=== PATIENT | female | born 1980 | race Caucasian/White ===

== ENCOUNTER 2017-03-09 12:28 | Emergency (ER) | payer MEDICAID ==
[~2017-03-09] VITALS: Wt 68.0 kg
[2017-03-09] MEDS ORDERED: ONDANSETRON 4 MG INJ IV STA (13:39)
[2017-03-09] MEDS ORDERED: KETOROLAC 30 MG INJ IV STA (13:39)
[2017-03-09 13:58] LABS: ADD SCAN DIFF NO
[2017-03-09 14:00] LABS: ABNORMAL IP MESSAGE 1; BASOPHIL # 0.1 10^3/ul (0.0-0.1); BASOPHILS % 0.6 % (0.0-2.0); EOSINOPHILS # 0.1 10^3/ul (0.0-0.5); EOSINOPHILS % 1.1 % (0.0-7.0); HEMATOCRIT 39.2 % (37.0-47.0); HEMOGLOBIN 12.6 g/dl (12.0-16.0); LYMPHOCYTES # 1.8 10^3/ul (0.8-2.9); MEAN CORPUSCULAR HEMOGLOBIN 28.5 pg (29.0-33.0); MEAN CORPUSCULAR HGB CONC 32.1 g/dl (32.0-37.0); MEAN CORPUSCULAR VOLUME 88.7 fl (82.0-101.0); MEAN PLATELET VOLUME 9.7 fl (7.4-10.4); MONOCYTE # 1.6 10^3/ul (0.3-0.9); NEUTROPHIL # 7.1 10^3/ul (1.6-7.5); PLATELET COUNT 272 10^3/UL (140-415); RED BLOOD COUNT 4.42 10^6/ul (4.20-5.40); RED CELL DISTRIBUTION WIDTH 13.2 % (11.5-14.5); WHITE BLOOD COUNT 10.8 10^3/ul (4.8-10.8)
[2017-03-09 14:05] LABS: ADD UMIC YES; URINE BILIRUBIN (Dip) NEGATIVE (NEGATIVE); URINE BLOOD (Dip) 2+ (NEGATIVE); URINE COLOR LT. YELLOW (YELLOW); URINE KETONES (Dip) NEGATIVE (NEGATIVE); URINE LEUKOCYTE ESTERASE (Dip) 3+ (NEGATIVE); URINE NITRITE (Dip) NEGATIVE (NEGATIVE); URINE TOTAL PROTEIN (Dip) TRACE (NEGATIVE); URINE UROBILINOGEN (Dip) 0.2 E.U./dL (0.1-1.0)
[2017-03-09 14:21] LABS: BACTERIA,URINE FEW
[2017-03-09 14:23] LABS: ALBUMIN/GLOBULIN RATIO 1.08; BILIRUBIN,INDIRECT 0.4 mg/dl (0-1.1); BILIRUBIN,TOTAL 0.4 mg/dl (0.2-1.3); CALCIUM 9.5 mg/dl (8.4-10.2); CREATININE 0.67 mg/dl (0.44-1.00); POTASSIUM 4.3 mmol/L (3.5-5.1); TOTAL PROTEIN 9.6 g/dl (6.1-8.1)
--- NOTE | 2017-03-09 14:26 | RADRPT ---
PROCEDURE: Right Upper Quadrant Ultrasound. CLINICAL INDICATION: Abdominal Pain, not ready @ 1455 TECHNIQUE: Multiple real-time images were acquired of the patient's right upper quadrant abdomen a nd retroperitoneum utilizing a high resolution transducer. COMPARISON: None FINDINGS: The liver measures 16.3 cm, and demonstrates normal echogenicity. The main portal vein is patent wit h proper directional flow. There is no intrahepatic biliary ductal dilatation. The extrahepatic comm on bile duct measures 3 mm. The gallbladder is without stones, wall thickening, or pericholecystic fluid. The visualized pancreas is unremarkable. The right kidney measures 10.2 x 4.9 x 4.5 cm and demonstrates normal echotexture. There is a shadowing 1.9 cm calculus in the mid to lower pole of the right kidney as well as an tj cent shadowing 12 mm calculus in the midpole. There is mild right hydronephrosis. The visualized abdominal aorta and IVC are grossly unremarkable. IMPRESSION: Multiple shadowing right renal calculi measuring up to 1.9 cm with mild right hydronephrosis. Mild hepatomegaly. No cholelithiasis or acute cholecystitis. Normal CBD. RPTAT: EE Physician Bertha Date Time Electronically viewed and signed by Physician Bertha on 03/09/2017 14:25 /
[2017-03-09] MEDS ORDERED: CEFTRIAXONE 1 GM/50 ML (PMX) 50 ML IVPB ONE (14:30)
[2017-03-09] MEDS ORDERED: CIPR500T4 PO (14:55)
[2017-03-09] MEDS ORDERED: TRAM50TA2 PO (14:55)
[2017-03-09] MEDS ORDERED: IBUP-1542 PO (14:55)
[2017-03-09] MEDS ORDERED: CIPROFLOXACIN 400MG/D5W 200 ML IVPB ONE (15:00)
[2017-03-09] MEDS ORDERED: DIPHENHYDRAMINE 50 MG INJ IV ONE (15:00)
--- NOTE | 2017-03-09 15:02 | ERD ---
ER Documentation Chief Complaint Date/Time DATE: 03/09/17 TIME: 15:00 Chief Complaint low back pain radiating to lower abd pain for 2 days. no hematuria HPI This 36-year-old female complains of epigastric pain or right upper quadrant right flank pain for last 2 days. She denies any hematuria or urinary complaints. She denies any fevers. She has nausea but no vomiting. She denies any lower abdominal pain. ROS All systems reviewed and are negative except as per history of present illness. Medications Home Meds Active Scripts Tramadol HCl (Tramadol HCl) 50 Mg Tablet, 50 MG PO Q4 Y for PAIN, #15 TAB Prov:JOHN CHILD MD 03/09/17 Ibuprofen* (Motrin*) 600 Mg Tab, 600 MG PO Q6, #15 TAB Prov:JOHN CHILD MD 03/09/17 Ciprofloxacin Hcl* (Ciprofloxacin Hcl*) 500 Mg Tablet, 500 MG PO BID for 7 Days , TAB Prov:JOHN CHILD MD 03/09/17 Allergies Allergies: Coded Allergies: ceftriaxone (Verified Allergy, Mild, 03/09/17) PMhx/Soc Medical and Surgical Hx: pt denies Medical Hx, pt denies Surgical Hx Hx Alcohol Use: No Hx Substance Use: No Hx Tobacco Use: No Physical Exam Vitals Vital Signs Date Time Temp Pulse Resp B/P Pulse Ox O2 Delivery O2 Flow Rate FiO2 03/09/17 12:55 100.0 94 20 120/60 96 Physical Exam Const: [] Alert, [id number]. Head: Atraumatic Eyes: Normal Conjunctiva ENT: Normal External Ears, Nose and Mouth. Neck: Full range of motion..~ No meningismus. Resp: Clear to auscultation bilaterally Cardio: Regular rate and rhythm, no murmurs Abd: Soft, mild tenderness in the right upper lateral abdomen and right upper quadrant. No rebound. No change at McBurney's point, non distended. Normal bowel sounds Skin: No petechiae or rashes Back: No midline or flank tenderness Ext: No cyanosis, or edema Neur: Awake and alert Psych: Normal Mood and Affect Result Diagram: 03/09/17 1345 03/09/17 1345 Results 24 hrs Laboratory Tests Test 03/09/17 13:25 03/09/17 13:45 Urine Color LT. YELLOW Urine Clarity CLEAR Urine pH 8.0 Urine Specific [place] 1.015 Urine Ketones NEGATIVE Urine Nitrite NEGATIVE Urine Bilirubin NEGATIVE Urine Urobilinogen 0.2 E.U./dL Urine Leukocyte Esterase 3+ Urine Microscopic RBC 2-5/HPF Urine Microscopic WBC >50/HPF Urine Epithelial Cells FEW Urine Bacteria FEW Urine Hemoglobin 2+ Urine Glucose 0.1%% Urine Total Protein TRACE White Blood Count 10.810^3/ul Red Blood Count 4.4210^6/ul Hemoglobin 12.6g/dl Hematocrit 39.2% Mean Corpuscular Volume 88.7fl Mean Corpuscular Hemoglobin 28.5pg Mean Corpuscular Hemoglobin Concent 32.1g/dl Red Cell Distribution Width 13.2% Platelet Count 68578^3/UL Mean Platelet Volume 9.7fl Neutrophils % 66.0% Lymphocytes % 17.0% Monocytes % 15.0% Eosinophils % 1.1% Basophils % 0.6% Nucleated Red Blood Cells % 0.0/100WBC Neutrophils # 7.110^3/ul Lymphocytes # 1.810^3/ul Monocytes # 1.610^3/ul Eosinophils # 0.110^3/ul Basophils # 0.110^3/ul Nucleated Red Blood Cells # 0.010^3/ul Sodium Level 141mmol/L Potassium Level 4.3mmol/L Chloride Level 103mmol/L Carbon Dioxide Level 28mmol/L Anion Gap 14 Blood Urea Nitrogen 12mg/dl Creatinine 0.67mg/dl Glucose Level 84mg/dl Calcium Level 9.5mg/dl Total Bilirubin 0.4mg/dl Direct Bilirubin 0.00mg/dl Indirect Bilirubin 0.4mg/dl Aspartate Amino Transf (AST/SGOT) 23IU/L Alanine Aminotransferase (ALT/SGPT) 33IU/L Alkaline Phosphatase 75IU/L Total Protein 9.6g/dl Albumin 5.0g/dl Globulin 4.60g/dl Albumin/Globulin Ratio 1.08 Lipase 32U/L Current Medications Medications (Trade) Dose Ordered Sig/Vandana Route PRN Reason Start Time Stop Time Status Last Admin Dose Admin Ondansetron HCl (Zofran Inj) 4 mg ONCE STAT IV 03/09/17 13:39 03/09/17 13:41 DC 03/09/17 13:54 Ketorolac Tromethamine 30 mg 30 mg ONCE STAT IV 03/09/17 13:39 03/09/17 13:41 DC 03/09/17 13:54 Ceftriaxone Sodium (Rocephin) 50 ml @ 100 mls/hr ONCE ONCE IVPB 03/09/17 14:30 03/09/17 14:59 DC 03/09/17 14:39 Diphenhydramine HCl 25 mg 25 mg ONCE ONCE IV 03/09/17 15:00 03/09/17 15:01 DC 03/09/17 15:01 Ciprofloxacin/ Dextrose (Cipro Ivpb) 200 ml @ 200 mls/hr ONCE ONCE IVPB 03/09/17 15:00 03/09/17 15:59 Dexamethasone (Decadron) 10 mg ONCE ONCE IV 03/09/17 15:30 03/09/17 15:31 DC 03/09/17 15:13 Procedures/MDM Urine shows bacteria, leukocytes with few epithelial cells. Urine was sent for culture. CBC and CMP are normal lipase are normal. Right upper quadrant ultrasound shows normal gallbladder and liver. There is incidental stones with mild hydronephrosis in the right kidney. Patient was given Toradol 30 mg IV. Patient had complete resolution of pain after observation treatment. Patient was given Rocephin 1 g IV but developed hives in the affected extremity and the Rocephin was stopped and given Benadryl 25 mg IV as well as Decadron 10 mg IV. Patient improved after observation treatment without signs to suggest anaphylaxis, respiratory distress Patient presents with epigastric and right leg pain which is resolved with treatment here in the ED. She is signs of kidney stones as likely the source of pain. She does have a UTI but shows no signs of septic stone or pyelonephritis given absence of fever leukocytosis persistent pain despite treatment. Patient will be treated with Cipro, ibuprofen instructions for clear fluids at home. Patient is advised to return immediately for fevers, vomiting, worsening pain, new worsening symptoms. Patient was referred to local urologist with instructions that she may need authorization from her primary care doctor. She is advised to drink plenty of fluids at home as well. Departure Diagnosis: Primary Impression: Kidney stone Additional Impressions: UTI (urinary tract infection) Urinary tract infection type: acute cystitis Hematuria presence: without hematuria Qualified Code: N30.00 - Acute cystitis without hematuria Abdominal pain Abdominal location: right upper quadrant Qualified Code: R10.11 - Right upper quadrant abdominal pain Condition: Stable Patient Instructions: Abdominal Pain, Understanding Urinary Tract Infections ( UTIs), Kidney Stone W/ Colic Referrals: AMERICO BARTLETT MD, BRIAN E LEFF,SOILA Araujo MD Additional Instructions: TIENE UN MINNIE EN RINON Y INFECCION EN ORINA. REGRESA PARA FIEBRE , VOMITO, NUEVA SIMPTOMAS. MATHEW MUCHO AGUA. JOHN CHILD MD Mar 09, 2017 15:02
[2017-03-09] MEDS ORDERED: DEXAMETHASONE 10 MG/ML 1 ML INJ IV ONE (15:30)
== END 2017-03-09 16:56 | disposition home or self-care (01) ==
LOC: FTE 12:28
DX: N20.0 Calculus of kidney (principal); N30.00 Acute cystitis without hematuria; R10.11 Right upper quadrant pain; R11.0 Nausea
CPT/HCPCS: 36415; 76705; 80053; 81001; 83690; 85025; 87086; 96374; 96375; 96376; J0696; J0744; J1100; J1200; J1885; J2405; Z7502

== ENCOUNTER 2017-04-25 17:33 | Emergency (ER) | payer MEDICAID ==
[~2017-04-25] VITALS: Ht 157.5 cm; Wt 57.5 kg
[~2017-04-25 17:33] MED LIST: CIPR500T4 PO; IBUP-1542 PO; TRAM50TA2 PO
[2017-04-25 17:36] VITALS: Ht 157.5 cm; Wt 57.5 kg
[2017-04-25] MEDS ORDERED: SOD CHLORIDE 0.9% 1,000 ML IV STA (17:56)
[2017-04-25] MEDS ORDERED: KETOROLAC 30 MG INJ IV STA (17:56)
[2017-04-25] MEDS ORDERED: ONDANSETRON 4 MG INJ IV STA (17:56)
[2017-04-25 18:35] LABS: ABNORMAL IP MESSAGE 1; HEMATOCRIT 36.6 % (37.0-47.0); HEMOGLOBIN 12.1 g/dl (12.0-16.0); MEAN CORPUSCULAR HEMOGLOBIN 28.9 pg (29.0-33.0); MEAN CORPUSCULAR HGB CONC 33.1 g/dl (32.0-37.0); MEAN CORPUSCULAR VOLUME 87.4 fl (82.0-101.0); MEAN PLATELET VOLUME 9.9 fl (7.4-10.4); PLATELET COUNT 305 10^3/UL (140-415); RED BLOOD COUNT 4.19 10^6/ul (4.20-5.40); RED CELL DISTRIBUTION WIDTH 13.3 % (11.5-14.5); WHITE BLOOD COUNT 13.6 10^3/ul (4.8-10.8)
[2017-04-25 18:37] LABS: POSITIVE DIFF @See below
[2017-04-25 18:49] LABS: ADD UMIC YES; UR ASCORBIC ACID NEGATIVE (NEGATIVE); UR BACTERIA FEW /HPF (NONE SEEN); UR BILIRUBIN (Dip) NEGATIVE (NEGATIVE); UR BLOOD (Dip) 2+ mg/dL (NEGATIVE); UR CLARITY CLEAR (CLEAR); UR COLOR STRAW (YELLOW); UR GLUCOSE (Dip) NEGATIVE (NEGATIVE); UR KETONES (Dip) NEGATIVE (NEGATIVE); UR LEUKOCYTE ESTERASE (Dip) 3+ Leu/ul (NEGATIVE); UR NITRITE (Dip) NEGATIVE (NEGATIVE); UR RBC 1 /HPF (0-5); UR SPECIFIC GRAVITY (Dip) 1.004 (1.003-1.030); UR SQUAMOUS EPITHELIAL CELL FEW /HPF (FEW); UR TOTAL PROTEIN (Dip) NEGATIVE (NEGATIVE); UR UROBILINOGEN (Dip) NEGATIVE (NEGATIVE)
[2017-04-25 18:58] LABS: ALBUMIN 4.5 g/dl (3.3-4.9); ALBUMIN/GLOBULIN RATIO 0.84; BILIRUBIN,INDIRECT 0.6 mg/dl (0-1.1); BILIRUBIN,TOTAL 0.6 mg/dl (0.2-1.3); CALCIUM 9.9 mg/dl (8.4-10.2); CREATININE 0.67 mg/dl (0.44-1.00); POTASSIUM 3.4 mmol/L (3.5-5.1); TOTAL PROTEIN 9.8 g/dl (6.1-8.1)
[2017-04-25 19:06] LABS: BASOPHIL # 0.1 10^3/ul (0.0-0.1); LYMPHOCYTES # 2.2 10^3/ul (0.8-2.9); MONOCYTE # 2.2 10^3/ul (0.3-0.9); NEUTROPHIL # 8.8 10^3/ul (1.6-7.5)
--- NOTE | 2017-04-25 19:50 | RADRPT ---
PROCEDURE: US Abdomen (right upper quadrant). CLINICAL INDICATION: Abdominal pain. TECHNIQUE: Multiple real-time longitudinal and transverse images of the right upper quadrant of th e abdomen were acquired utilizing a curved array transducer. Images were reviewed on a high-resoluti on PACS workstation. COMPARISON: 03/09/2017. FINDINGS: The liver is normal in size and echogenicity without focal mass or intrahepatic biliary dilatation. The gallbladder contains gallstones. The sonographic Rosa sign is negative. No intra or extrahep atic biliary dilatation is seen. The common bile duct measures 4.6 mm in maximal dimension. The vi sualized portions of the pancreas are unremarkable with obscuration of the tail of the pancreas. No free fluid is identified. The right kidney measures 11.3 cm in length. There are several calcified right renal stones are not ed measuring up to 1.9 cm in the mid to lower pole of the right kidney. There is mild right hydrone phrosis. IMPRESSION: 1. Cholelithiasis. 2. Right renal calculi measuring up to 1.9 cm with mild right hydronephrosis. RPTAT: HFN .Dayana Benitez MD, MD Date Time Electronically viewed and signed by .Dayana Benitez MD, MD on 04/25/2017 19:50 .N/
[2017-04-25] MEDS ORDERED: HYDR-906 PO (20:06)
[2017-04-25] MEDS ORDERED: NITR-58 PO (20:06)
[2017-04-25] MEDS ORDERED: IBUP-1542 PO (20:06)
--- NOTE | 2017-04-25 20:12 | ERD ---
ER Documentation Chief Complaint Date/Time DATE: 04/25/17 TIME: 20:08 Chief Complaint 04/12 head pain x today HPI Patient is a 36-year-old female who has multiple complaints. She is complaining of headache and epigastric pain that she has had for 5 days. She states she had a fever at home. She admits to nausea but no vomiting. No diarrhea. No dysuria or hematuria but she does admit to increased urinary frequency. She denies any photosensitivity or double or blurry vision. She has not taken any medications for her pain. Pain is 7 out of 10. Her last menstrual period was last week and ended on Wednesday. ROS All systems reviewed and are negative except as per history of present illness. Medications Home Meds Active Scripts Hydrocodone/Acetaminophen (Neponset 5-325 Tablet) 1 Each Tablet, 1 TAB PO Q6H Y for PAIN, #20 TAB Prov:SARKIS JUAREZ PA-C 04/25/17 Nitrofurantoin Monohyd Macrocr* (Macrobid*) 100 Mg Capsr, 100 MG PO BID for 7 Days, CAP Prov:SARKIS JUAREZ PA-C 04/25/17 Ibuprofen* (Motrin*) 600 Mg Tab, 600 MG PO Q6, #30 TAB Prov:SARKIS JUAREZ PA-C 04/25/17 Tramadol HCl (Tramadol HCl) 50 Mg Tablet, 50 MG PO Q4 Y for PAIN, #15 TAB Prov:JOHN CHILD MD 03/09/17 Ibuprofen* (Motrin*) 600 Mg Tab, 600 MG PO Q6, #15 TAB Prov:JOHN CHILD MD 03/09/17 Ciprofloxacin Hcl* (Ciprofloxacin Hcl*) 500 Mg Tablet, 500 MG PO BID for 7 Days , TAB Prov:JOHN CHILD MD 03/09/17 Allergies Allergies: Coded Allergies: ceftriaxone (Verified Allergy, Mild, 04/25/17) PMhx/Soc History of Surgery: No Anesthesia Reaction: No Hx Neurological Disorder: No Hx Respiratory Disorders: No Hx Cardiac Disorders: No Hx Psychiatric Problems: No Hx Miscellaneous Medical Probl: No Hx Alcohol Use: No Hx Substance Use: No Hx Tobacco Use: No Smoking Status: Never smoker FmHx Family History: No diabetes Physical Exam Vitals Vital Signs Date Time Temp Pulse Resp B/P Pulse Ox O2 Delivery O2 Flow Rate FiO2 7/23/17 17:36 97.5 119 16 130/75 99 Physical Exam General: well developed, well nourished, alert, nontoxic, no distress Head: normocephalic, atraumatic Eyes: PERRL, normal conjunctiva Neck: Supple, nontender, no lymphadenopathy, no midline tenderness Respiratory: Clear to auscaultation bilaterally, speaks in full sentences, no use of accesory muscles or labored breathing, no rales, ronchi, or wheezing Cardiovascular: RRR, No murmurs GI: soft, non tender, non distended, negative murphys sign, negative mcburneys point tenderness, no cva tenderness bilaterally, no rebound or guarding Back: no midline tenderness, no step offs or bony abnormalities, sensation to light touch in tact Result Diagram: 04/25/17180404/25/171804 Results 24 hrs Laboratory Tests Test 04/25/17 18:00 04/25/17 18:05 Urine Color STRAW Urine Clarity CLEAR Urine pH 7.0 Urine Specific [place] 1.004 Urine Ketones NEGATIVEmg/dL Urine Nitrite NEGATIVEmg/dL Urine Bilirubin NEGATIVEmg/dL Urine Urobilinogen NEGATIVEmg/dL Urine Leukocyte Esterase 3+River/ul Urine Microscopic RBC 1/HPF Urine Microscopic WBC 27/HPF Urine Squamous Epithelial Cells FEW/HPF Urine Bacteria FEW/HPF Urine Hemoglobin 2+mg/dL Urine Glucose NEGATIVEmg/dL Urine Total Protein NEGATIVEmg/dl White Blood Count 13.610^3/ul Red Blood Count 4.1910^6/ul Hemoglobin 12.1g/dl Hematocrit 36.6% Mean Corpuscular Volume 87.4fl Mean Corpuscular Hemoglobin 28.9pg Mean Corpuscular Hemoglobin Concent 33.1g/dl Red Cell Distribution Width 13.3% Platelet Count 03250^3/UL Mean Platelet Volume 9.9fl Neutrophils % 65.0% Lymphocytes % 16.0% Monocytes % 16.0% Basophils % 1.0% Nucleated Red Blood Cells % 0.0/100WBC Neutrophils # 8.810^3/ul Band Neutrophils # 8.810^3/ul Lymphocytes # 2.210^3/ul Monocytes # 2.210^3/ul Basophils # 0.110^3/ul Sodium Level 139mmol/L Potassium Level 3.4mmol/L Chloride Level 93mmol/L Carbon Dioxide Level 27mmol/L Anion Gap 22 Blood Urea Nitrogen 9mg/dl Creatinine 0.67mg/dl Glucose Level 98mg/dl Calcium Level 9.9mg/dl Total Bilirubin 0.6mg/dl Direct Bilirubin 0.00mg/dl Indirect Bilirubin 0.6mg/dl Aspartate Amino Transf (AST/SGOT) 23IU/L Alanine Aminotransferase (ALT/SGPT) 29IU/L Alkaline Phosphatase 82IU/L Total Protein 9.8g/dl Albumin 4.5g/dl Globulin 5.30g/dl Albumin/Globulin Ratio 0.84 Lipase 29U/L Current Medications Medications (Trade) Dose Ordered Sig/Vandana Route PRN Reason Start Time Stop Time Status Last Admin Dose Admin Sodium Chloride (NS) 1,000 ml @ 1,000 mls/hr Q1H STAT IV 04/25/17 17:56 04/25/17 18:55 DC 04/25/17 18:09 Ondansetron HCl (Zofran Inj) 4 mg ONCE STAT IV 04/25/17 17:56 04/25/17 17:58 DC 04/25/17 18:09 Ketorolac Tromethamine (Toradol) 30 mg ONCE STAT IV 04/25/17 17:56 04/25/17 17:58 DC 04/25/17 18:09 Procedures/MDM Patient is a 36-year-old female who has epigastric pain and abdominal pain. She has no tenderness on exam and her neurological examination is normal. She is afebrile but tachycardic at 119. She was given IV fluids and pain medication. She does have elevated white blood cell count 13.6. The rest of her labs are unremarkable other than the urinalysis shows evidence of urinary tract infection. Gallbladder ultrasound shows cholelithiasis without cholecystitis as well as a kidney stone with mild hydronephrosis. I reviewed all the labs and radiology reports with Dr. Soto who agrees this patient is suitable for outpatient management. She was given Macrobid for her urinary tract infection as well as ibuprofen and Neponset for pain. Recommended this patient follow up with her primary care doctor within 48 hours or return to the emergency room for any worsening of symptoms. However this time I do believe there is suitable for outpatient management. I answered all their questions and they agreed with the plan and were discharged home. Departure Diagnosis: Primary Impression: Renal colic Additional Impressions: Abdominal pain Cystitis Condition: Stable Patient Instructions: Abdominal Pain, Cystitis Additional Instructions: Llame al doctor MAANA y sara omar SMITA PARA DENTRO DE 1-2 CONTRERAS.Dgale a la secretaria que nosotros le instruimos hacer esta smita.Avise o llame si perdomo condicin se empeora antes de la smita. Regresa aqui si peor o no mejor. SARKIS JUAREZ PA-C Apr 25, 2017 20:12
== END 2017-04-25 20:16 | disposition home or self-care (01) ==
LOC: FTE 17:33
DX: N23 Unspecified renal colic (principal); N30.90 Cystitis, unspecified without hematuria; R11.0 Nausea
CPT/HCPCS: 36415; 76705; 80053; 81001; 83690; 85025; 96374; 96375; J1885; J7030; Z7502; J2405